=== PATIENT | male | born 1980 | race Caucasian/White ===

== ENCOUNTER 2017-08-23 05:18 | Day surgery (SDC) | payer OTHER ==
[~2017-08-23] VITALS: Ht 188 cm; Wt 78.5 kg
[~2017-08-23 05:18] MED LIST: ALEVE220 MG PO; NON-ASPIRIN PA325 MG PO
[2017-08-23 06:54] VITALS: BP 123/70
[2017-08-23] MEDS ORDERED: OXAYDO5 MG PO (08:30)
[2017-08-23 09:30] VITALS: BP 119/68
[2017-08-23 10:08] VITALS: BP 122/71
== END 2017-08-23 10:29 | disposition home or self-care (01) ==
LOC: SDC 05:18
PROC: 0JB80ZZ Excision of Abdomen Subcutaneous Tissue and Fascia, Open Approach (ICD-10-PCS; principal; 2017-08-23)
DX: T85.848A Pain due to other internal prosthetic devices, implants and grafts, initial encounter (principal); R10.32 Left lower quadrant pain; Z87.891 Personal history of nicotine dependence; Z88.5 Allergy status to narcotic agent; Y83.8 Other surgical procedures as the cause of abnormal reaction of the patient, or of later complication, without mention of misadventure at the time of the procedure
CPT/HCPCS: J0690; J1100; J1170; J1885; J2405; J2710; J3010; S0020

== ENCOUNTER 2017-08-27 00:04 | Emergency (ER) | payer OTHER ==
[~2017-08-27] VITALS: Ht 188 cm; Wt 77.1 kg
[~2017-08-27 00:04] MED LIST changes: +OXAYDO5 MG PO
[2017-08-27 00:38] LABS: HEMATOCRIT 41.2 % (38.0-50.0); HEMOGLOBIN 14.7 G/DL (12.5-16.6); MCH 31.8 PG (29.0-34.0); MCHC 35.7 G/DL (30.0-36.0); MCV 89.2 FL (86-99); PLATELET COUNT 271 K/uL (156-360); RBC DIS.WIDTH-CV 12.6 % (11.8-14.6); RBC DIS.WIDTH-SD 41.1 % (39-53); RED BLOOD COUNT 4.62 M/uL (4.00-5.50); WHITE BLOOD COUNT 13.4 K/uL (4.1-10.2)
[2017-08-27 00:49] LABS: CHLORIDE 103 mEq/L (99-109); POTASSIUM 4.4 mEq/L (3.7-5.4); SODIUM 141 mEq/L (136-147)
[2017-08-27 00:50] LABS: GLUCOSE 98 mg/dL (70-99)
[2017-08-27 00:54] LABS: CREATININE 0.9 mg/dL (0.6-1.3); GFR ESTIMATE (CALCULATED) > 59 mL/min/ (58.99-99999)
[2017-08-27 00:55] LABS: UREA NITROGEN (BUN) 16 mg/dL (9-23)
[2017-08-27] MEDS ORDERED: XYLOCAINE VISC100 ML PO (04:24)
[2017-08-27 04:40] VITALS: BP 92/55
== END 2017-08-27 04:51 | disposition home or self-care (01) ==
LOC: EME 00:04
PROVIDERS: Emergency Medicine
DX: B34.9 Viral infection, unspecified (principal); Z87.891 Personal history of nicotine dependence; Z98.890 Other specified postprocedural states; Z88.5 Allergy status to narcotic agent
CPT/HCPCS: 71046; 80048; 85027; 87502; 87651 90; 99281; 99284

== ENCOUNTER 2017-12-22 12:28 | Emergency (ER) | payer OTHER ==
[~2017-12-22] VITALS: Ht 188 cm; Wt 79.4 kg
[~2017-12-22 12:28] MED LIST changes: +XYLOCAINE VISC100 ML PO
[2017-12-22 13:55] LABS: HEMATOCRIT 40.4 % (38.0-50.0); MCH 30.6 PG (29.0-34.0); MCHC 34.7 G/DL (30.0-36.0); MCV 88.4 FL (86-99); PLATELET COUNT 323 K/uL (156-360); RBC DIS.WIDTH-CV 13.2 % (11.8-14.6); RBC DIS.WIDTH-SD 42.6 % (39-53); RED BLOOD COUNT 4.57 M/uL (4.00-5.50); WHITE BLOOD COUNT 15.1 K/uL (4.1-10.2)
[2017-12-22 14:04] LABS: CHLORIDE 102 mEq/L (99-109); POTASSIUM 3.9 mEq/L (3.7-5.4); SODIUM 139 mEq/L (136-147)
[2017-12-22 14:06] LABS: GLUCOSE 116 mg/dL (70-99)
[2017-12-22 14:10] LABS: CREATININE 1.1 mg/dL (0.6-1.3); GFR ESTIMATE (CALCULATED) > 59 mL/min/ (58.99-99999)
[2017-12-22 14:11] LABS: UREA NITROGEN (BUN) 15 mg/dL (9-23)
[2017-12-22 14:44] VITALS: BP 146/81
[2017-12-22 15:41] LABS: APPEARANCE CLEAR ((CLEAR)); BILIRUBIN NEGATIVE; BLOOD MODERATE; COLOR YELLOW ((YELLOW)); GLUCOSE (STRIP) NEGATIVE; KETONES NEGATIVE; LEUKOCYTES NEGATIVE; NITRITE NEGATIVE; PROTEIN (STRIP) 30; SPECIFIC GRAVITY 1.015 (1.000-1.030); UROBILINOGEN 0.2 MG/DL (0.2-1.0)
[2017-12-22 16:07] LABS: BACTERIA NONE SEEN /HPF; EPITHELIAL CELLS RARE /HPF; MUCUS TRACE /LPF; RED BLOOD CELLS TNTC /HPF (0-5); UCUL ADDED? YES; WHITE BLOOD CELLS 0-5 /HPF (0-5)
== END 2017-12-22 17:37 | disposition left against medical advice (07) ==
LOC: EME 12:28
PROVIDERS: Emergency Medicine
DX: N13.2 Hydronephrosis with renal and ureteral calculous obstruction (principal); Z88.5 Allergy status to narcotic agent; Z86.69 Personal history of other diseases of the nervous system and sense organs; Z87.891 Personal history of nicotine dependence
CPT/HCPCS: 74176; 80048; 81003; 85027; 87086; 99281; 99285; J1885; J2405; J3010; J7030